=== PATIENT | female | born 1990 | race Caucasian/White ===

== ENCOUNTER → 2024-03-20 19:35 | Outpatient (REF) | payer OTHER, SELFPAY | LOC: MRI 19:35 | PROVIDERS: ATTENDING PHYSICIAN Student in an Organized Health Care Education/Training Program; FAMILY PHYSICIAN Family Medicine | DX: E22.1 Hyperprolactinemia (principal); D35.2 Benign neoplasm of pituitary gland | CPT/HCPCS: 70553; A9575 ==

== ENCOUNTER → 2024-04-13 16:00 | Outpatient (REF) | payer OTHER, SELFPAY | LOC: RAD 16:00 | PROVIDERS: ATTENDING PHYSICIAN Obstetrics & Gynecology; FAMILY PHYSICIAN Family Medicine | DX: R10.2 Pelvic and perineal pain (principal) | CPT/HCPCS: 76830; 76856 ==

== ENCOUNTER 2024-06-23 19:13 | Emergency (ER) | payer OTHER, SELFPAY ==
[2024-06-23 19:21] VITALS: BP 126/79
[2024-06-23 19:46] LABS: Urine Albumin Trace (Neg - Trace); Urine Bilirubin Negative (Negative); Urine Character Clear (Clear); Urine Color Yellow; Urine Glucose Negative (Negative); Urine Ketone Trace (Negative); Urine Leukocyte Trace (Negative); Urine Nitrite Negative (Negative); Urine Occult Blood 4+ (Negative); Urine Specific Gravity 1.015 (<1.030); Urine Urobilinogen Negative (Neg - 1+)
[2024-06-23 19:47] LABS: % Basophils 0.3 % (0-2); % Eosinophils 0.4 % (0-6); % Immature Granulocytes 0.3 % (0-0.5); % Lymphocytes 15.6 % (20.5-51.1); % Monocytes 8.4 % (1.7-9.3); Absolute Eosinophils 0.1 10^3/uL (0-0.7); Absolute Immature Granulocytes 0.1 10^3/uL (0-0.05); Absolute Lymphocytes 2.4 10^3/uL (1.2-3.4); Absolute Monocytes 1.3 10^3/uL (0.1-0.6); Absolute Neutrophils 11.4 10^3/uL (1.4-6.5); Hematocrit 39.3 % (37.0-47.0); Hemoglobin 13.8 g/dL (12.0-16.0); Mean Corp Hgb Conc. 35.1 g/dL (33.0-37.0); Mean Corpuscular Hgb 32.1 pg (27.0-31.0); Mean Corpuscular Volume 91.4 fL (81.0-99.0); Mean Platelet Volume 9.9 fL (7.4-10.4); Nucleated Red Blood Cells % 0 %; Platelet Count 206 10^3/uL (130-400); White Blood Cell Count 15.2 10^3/uL (4.8-10.8)
[2024-06-23 19:55] LABS: Urine Mucus Many; Urine Squamous Cell 16-20 /LPF (Few)
[2024-06-23 19:56] LABS: Urine Calcium Oxalate Crystals Present
[2024-06-23 19:57] LABS: Urine Amorphous Seen; Urine Bacteria Many (Negative); Urine White Cell 0-2 /HPF (0-5)
[2024-06-23 19:58] LABS: Urine Red Blood Cell >100 /HPF (0-2)
[2024-06-23 19:59] LABS: ALT (SGPT) 32 U/L (0-35); AST (SGOT) 32 U/L (14-36); Albumin 4.7 g/dl (3.5-5.0); Alkaline Phosphatase 47 U/L (38-126); Blood Urea Nitrogen 21 mg/dl (7-17); Carbon Dioxide 20 mmol/L (22-30); Chloride 105 mmol/L (98-107); Glucose 113 mg/dl (70-99); Potassium 4.6 mmol/L (3.5-5.1); Sodium 139 mmol/L (135-145); Total Bilirubin 0.4 mg/dl (0.2-1.3); Total Protein 7.1 g/dl (6.3-8.2); eGFR > 60.00
[2024-06-23 20:36] VITALS: BMI 29.2
--- NOTE | 2024-06-23 20:36 | ED.GENMED ---
History of Present Illness
<Fernandez Keane MD, Resident - Last Filed: 06/23/24 22:38>
General
Chief Complaint: Flank Pain
Source: patient and family
Time Seen by Provider: 06/23/24 20:15
Travel History
Have you traveled to any high risk areas for coronavirus over the past 14 days?: No
Have you had any contact with someone who has COVID-19?: No
Do you have any symptoms of coronavirus? Fever > 100 degrees, chills, cough, shortness of breath, sore throat, loss of taste or smell, muscle aches, or headache?: No
History of Present Illness
History of Present Illness:
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 The pain has worsened through the day, and now she has nausea and chills. No prior history of known nephrolithiasis,
recent or recurrent urinary tract infections, or other preceding genitourinary symptoms. Denies any recent illnesses, changes to her health, or any new medications.
Past History
<Fernandez Keane MD, Resident - Last Filed: 06/23/24 22:38>
Past History
ED Past Medical History: Other (prolactinoma; migraine disorder)
ED Past Surgical History: None
Social History
Tobacco: Non-smoker
Alcohol: Occasional
Drug: None
Living: with family
Review of Systems
<Fernandez Keane MD, Resident - Last Filed: 06/23/24 22:38>
Review of Systems
All Other Systems: Not applicable
Constitutional: Reports no symptoms
EENT: Reports no symptoms
Respiratory: Reports no symptoms
Cardiac: Reports no symptoms
ABD/GI: Reports no symptoms
: Reports flank pain and bleeding; Denies dysuria, frequency, incontinence, difficulty voiding, urgency, dark urine or discharge
Musculoskeletal: Reports no symptoms
Skin: Reports no symptoms
Neurological: Reports no symptoms
Endocrine: Reports no symptoms
Hematologic/Lymphatic: Reports no symptoms
Psychiatric: Reports no symptoms
Phy Exam
<Fernandez Keane MD, Resident - Last Filed: 06/23/24 22:38>
General Physical Exam
General Presentation: well appearing and no apparent distress
General Skin: warm and dry
General Habitus: normal
General Mental: alert
General Hydration: appears well hydrated
ENT Exam
ENT Exam: EOMI, pharynx normal, neck supple and normocephalic
Eye Exam
Eye Exam: PERRL, cornea clear and conjunctiva normal
Cardiovascular Exam
Cardiovascular Exam: regular rate/rhythm, no edema, no murmur and normal peripheral pulses
Pulmonary Exam
Pulmonary Exam: lungs clear, no respiratory distress, no rales, no crackles, no rhonchi, no stridor, no wheezing and no cough
Gastrointestinal Exam
Gastrointestinal Exam: normal bowel sounds, soft, no organomegaly, no pulsatile mass, non distended and cva tenderness (right)
Neurological Exam
Neurological Exam: alert, oriented x3, no motor deficits and speech normal
Musculoskeletal Exam
Musculoskeletal Exam: full ROM and no edema
Skin Exam
Skin Exam: normal color, warm/dry, no rash and no petechia
Psychiatric Exam
Psychiatric Exam: normal mood/affect
Course
<Fernandez Keane MD, Resident - Last Filed: 06/23/24 22:38>
Orders/Labs/Results
Orders:
Orders
06/23/24 19:34
Complete Blood Count/With Diff Urgent
06/23/24 19:35
Comprehensive Metabolic Panel Urgent
HCG, Serum Qualitative Screen Urgent
Comment: ADD ON
Urinalysis Reflex To Culture Urgent
Date Specimen was Collected: 06/23/24
Time Specimen was Collected: 19:28
Urine Microscopic Reflex Cult Urgent
Urine Culture Urgent
JONI Source: U
Specimen Description:
Date Specimen was Collected: 06/23/24
Time Specimen was Collected: 19:28
06/23/24 20:24
Add On- LAB Urgent
Tests Added?: HCG Qualitative
06/23/24 20:34
0.9% Sodium Chloride 1000 ml [Nss] 1,000 ml IV BOLUS
Ketorolac [Toradol] 30 mg IV NOW STA
Ondansetron Injectable [Zofran] 4 mg IV NOW STA
06/23/24 21:09
CT Abd/pel Without Iv Or Oral Urgent
Comment:
Reason For Exam: right flank pain; hematuria
06/23/24 21:53
HYDROmorphone [Dilaudid] 0.5 mg IV NOW STA
Abnormal Lab Results
06/23/24 06/23/24
19:34 19:35
WBC 15.2 H 10^3/uL
(4.8-10.8)
MCH 32.1 H pg
(27.0-31.0)
Abs Immat Gran (auto) 0.1 H 10^3/uL
(0-0.05)
Absolute Neuts (auto) 11.4 H 10^3/uL
(1.4-6.5)
Absolute Monos (auto) 1.3 H 10^3/uL
(0.1-0.6)
Lymphocytes % 15.6 L %
(20.5-51.1)
Carbon Dioxide 20 L mmol/L
(22-30)
BUN 21 H mg/dl
(7-17)
Creatinine 1.1 H mg/dL
(0.6-1.0)
Glucose 113 H mg/dl
(70-99)
Urine Ketones Trace A
(Negative)
Ur Occult Blood Reflex 4+ A
(Negative)
Leukocyte Esterase Rfl Trace A
(Negative)
Urine RBC >100 A /HPF
(0-2)
Urine Bacteria (Reflex) Many A
(Negative)
06/23/24 19:34
06/23/24 19:35
Vital Signs
Initial and Last Documented VS:
Initial Vital Signs
Temp Pulse Resp BP Pulse Ox
97.9 F 88 18 126/79 100
06/23/24 19:21 06/23/24 19:21 06/23/24 19:21 06/23/24 19:21 06/23/24 19:21
Last Documented Vital Signs
Temp Pulse Resp BP Pulse Ox
97.9 F 70 22 108/71 100
06/23/24 19:21 06/23/24 21:00 06/23/24 21:00 06/23/24 21:00 06/23/24 21:00
<Javi HClemencia Mary, DO - Last Filed: 06/23/24 22:36>
Orders/Labs/Results
Orders:
Orders
06/23/24 19:34
Complete Blood Count/With Diff Urgent
06/23/24 19:35
Comprehensive Metabolic Panel Urgent
HCG, Serum Qualitative Screen Urgent
Comment: ADD ON
Urinalysis Reflex To Culture Urgent
Date Specimen was Collected: 06/23/24
Time Specimen was Collected: 19:28
Urine Microscopic Reflex Cult Urgent
Urine Culture Urgent
JONI Source: U
Specimen Description:
Date Specimen was Collected: 06/23/24
Time Specimen was Collected: 19:28
06/23/24 20:24
Add On- LAB Urgent
Tests Added?: HCG Qualitative
06/23/24 20:34
0.9% Sodium Chloride 1000 ml [Nss] 1,000 ml IV BOLUS
Ketorolac [Toradol] 30 mg IV NOW STA
Ondansetron Injectable [Zofran] 4 mg IV NOW STA
06/23/24 21:09
CT Abd/pel Without Iv Or Oral Urgent
Comment:
Reason For Exam: right flank pain; hematuria
06/23/24 21:53
HYDROmorphone [Dilaudid] 0.5 mg IV NOW STA
Abnormal Lab Results
06/23/24 06/23/24
19:34 19:35
WBC 15.2 H 10^3/uL
(4.8-10.8)
MCH 32.1 H pg
(27.0-31.0)
Abs Immat Gran (auto) 0.1 H 10^3/uL
(0-0.05)
Absolute Neuts (auto) 11.4 H 10^3/uL
(1.4-6.5)
Absolute Monos (auto) 1.3 H 10^3/uL
(0.1-0.6)
Lymphocytes % 15.6 L %
(20.5-51.1)
Carbon Dioxide 20 L mmol/L
(22-30)
BUN 21 H mg/dl
(7-17)
Creatinine 1.1 H mg/dL
(0.6-1.0)
Glucose 113 H mg/dl
(70-99)
Urine Ketones Trace A
(Negative)
Ur Occult Blood Reflex 4+ A
(Negative)
Leukocyte Esterase Rfl Trace A
(Negative)
Urine RBC >100 A /HPF
(0-2)
Urine Bacteria (Reflex) Many A
(Negative)
06/23/24 19:34
06/23/24 19:35
Vital Signs
Initial and Last Documented VS:
Initial Vital Signs
Temp Pulse Resp BP Pulse Ox
97.9 F 88 18 126/79 100
06/23/24 19:21 06/23/24 19:21 06/23/24 19:21 06/23/24 19:21 06/23/24 19:21
Last Documented Vital Signs
Temp Pulse Resp BP Pulse Ox
97.9 F 70 22 108/71 100
06/23/24 19:21 06/23/24 21:00 06/23/24 21:00 06/23/24 21:00 06/23/24 21:00
<Fernandez Keane MD, Resident - Last Filed: 06/23/24 22:38>
MDM/Problems Addressed
Differential Diagnosis Includes:
Nephrolithiasis; pyelonephritis
MDM/Problems Addressed:
Will check CT AP for suspected nephrolithiasis.
<Fernandez Keane MD, Resident - Last Filed: 06/23/24 22:38>
*Critical Care Note
Total Time (30-74mins, 75-104mins- exclusive of procedures): Not Applicable
<Fernandez Keane MD, Resident - Last Filed: 06/23/24 22:38>
Update Note
Update Note:
Pain much better controlled and patient is stable. Discussed treatment options and outpatient follow-up with primary and urology.
ED Attending Note
<Fernandez Keane MD, Resident - Last Filed: 06/23/24 22:38>
-
Portions of this chart may have been created with voice recognition software.� Occasional wrong word or��sound alike� substitutions may have occurred due to the inherent limitations of voice recognition software.
<Javi Mary, DO - Last Filed: 06/23/24 22:36>
ED Attending Note
Patient seen and examined by attending physician: Yes
I performed a history and physical exam of patient and discussed management with resident, I reviewed resident's note and agree with documented findings and plan of care.: Yes
ED Attending Note:
Patient presents with right flank pain that started suddenly at 6 AM. Pain associate with nausea vomiting. Patient noted some blood in her urine. No fever. No history of similar pain.
General: Awake, Alert, Oriented X3. No acute distress.
Vitals: unremarkable
Head: Atraumatic
Eyes: Pupils equal, EOMI
Lungs: Clear and equal b/l
Heart: Regular rate, no murmurs
Abd: Soft, Nontender, No pulsatile mass
Back: Mild right CVA tenderness to percussion
Neuro: Nonfocal
Skin: Warm, dry, no rash
Extremities: pulses equal b/l, no edema
Patient presents with sudden right flank pain. Suspect kidney stone. Will obtain a CT to further evaluate. Patient feels better after Toradol and Zofran.
Discharge Plan
Departure
Patient Disposition: Home (Routine Discharge)
Date of Disposition: 06/23/24
Time of Disposition: 22:28
Patient with high blood pressure during this ER visit?: No
Condition: Good
Discharge Problem:
Ureterolithiasis
Instructions: Kidney stones in adults
Prescriptions:
New
tamsulosin [Flomax] 0.4 mg capsule
0.4 mg PO DAILY 14 Days Qty: 14 1RF
Rx Instructions:
Take until the stone passes.
oxycodone 5 mg tablet
5 mg PO Q6H PRN (Reason: Pain) Qty: 12 0RF
Referrals:
Candice Delarosa DO [Active] - Call in 1-3 days for appt (Ureterolithiasis)
Waqar Turner MD [Family Provider] -
Activity Restrictions/Additional Instructions:
Stay well-hydrated. Follow-up with primary and consult urology outpatient.
Interventions
Interventions:
*General Assessment Last Done: 06/23/24 19:28
ED- Fall Risk Assessment Last Done: 06/23/24 20:37
NM-Koevpv-Zwegmlleak Assessment Last Done: 06/23/24 20:37
ED-Female Genitourinary Assessment Last Done: 06/23/24 20:37
Discharge Date and Time
Print Language: PERSIAN
[2024-06-23] MEDS: TORADOL 30 MG IV (20:42)
[2024-06-23] MEDS: NSS 1000 IV (20:42)
[2024-06-23] MEDS: ZOFRAN 4 MG IV (20:42)
[2024-06-23 21:00] VITALS: BP 108/71
[2024-06-23 21:02] LABS: HCG, Serum Qualitative Screen Negative
[2024-06-23 21:04] VITALS: BP 108/71
[2024-06-23] MEDS: DILAUDID 0.5 MG IV (21:57)
== END 2024-06-23 22:50 | disposition home or self-care (01) ==
LOC: EMR 19:13
PROVIDERS: EMERGENCY PHYSICIAN Emergency Medicine; FAMILY PHYSICIAN Family Medicine
DX: N13.2 Hydronephrosis with renal and ureteral calculous obstruction (principal)
CPT/HCPCS: 99284; 96374; 96375 ×2; 74176; 80053; 81003; 81015; 84703; 85025; 87086

== ENCOUNTER 2024-06-25 22:07 | Inpatient (IN) | payer OTHER, SELFPAY ==
[2024-06-25] VITALS (7 sets, daily range): BP systolic 99–118; BP diastolic 64–78; BMI 29.4
--- NOTE | 2024-06-25 16:24 | ED.GENMED ---
History of Present Illness
General
Chief Complaint: Flank Pain
Source: patient and records
Time Seen by Provider: 06/25/24 15:31
History of Present Illness
History of Present Illness:
34 year old female with past medical history of recently diagnosed right sided proximal ureteral stone this past Tuesday, returning to the ER due to continued pain, nausea/vomiting and generally feeling unwell despite taking flomax and pain
medications as directed. Patient's last dose of oxycodone was at 2 PM today and she also took Tylenol around 1 PM but 30 seconds after taking the Tylenol patient proceeded to vomit. She states her hematuria has improved from Tuesday and remains
without any other urinary symptoms. Pain currently 7 out of 10, right flank, nonradiating. Patient denies any fevers, chills or rigors. No other symptoms presently
Past History
Past History
ED Past Medical History: Other (prolactinoma; migraine disorder)
ED Past Surgical History: None
Social History
Tobacco: Non-smoker
Alcohol: Occasional
Drug: None
Personal: Single
Living: with family
Review of Systems
Review of Systems
All Other Systems: ROS reviewed and negative except as documented in HPI and ROS
Phy Exam
Physical Exam
Physical Exam:
GENERAL: Alert , appears uncomfortable
HEAD: NCAT
EYE: clear conjunctiva
NECK: Supple
ENT: o/p clr, mmm.
CARDIAC: Regular rate and rhythm .
LUNGS: Clear breath sounds bilaterally, no acute respiratory distress, no wheezes/rales/rhonchi
ABDOMEN: Soft, without focal tenderness, no r/g, mild right CVAT
NEUROLOGICAL: Alert and oriented, no focal neuro deficits
SKIN: Warm and dry, skin intact.
MUSCULOSKELETAL: well perfused.
PSYCH: Normal and appropriate interaction.
Scores
Heart Failure Risk
Heart Failure Risk Score: Not Applicable
Heart Score for Chest Pain Patients
STEMI patient?: Not applicable
Withdrawal Assessment of Alcohol
Withdrawal Assessment Completed?: Not applicable
Course
Orders/Labs/Results
Orders:
Orders
06/25/24 Breakfast
Regular
At Your Request: Full Participation
06/25/24 15:33
Test Result ONCE
06/25/24 15:54
0.9% Sodium Chloride 1000 ml [Nss] 1,000 ml IV BOLUS
HYDROmorphone [Dilaudid] 0.5 mg IV NOW STA
Ketorolac [Toradol] 30 mg IV NOW STA
Ondansetron Injectable [Zofran] 4 mg IV NOW STA
06/25/24 15:56
CR Abdomen - 1 View Urgent
Comment:
Reason For Exam: right flank pain, prox ureteral stone 2 days ago
06/25/24 16:45
Complete Blood Count/With Diff Urgent
Comprehensive Metabolic Panel Urgent
HCG, Serum Qualitative Screen Urgent
Urinalysis Reflex To Culture Urgent
Date Specimen was Collected: 06/25/24
Time Specimen was Collected: 16:39
Urine Microscopic Reflex Cult Urgent
06/25/24 19:50
Ondansetron Injectable [Zofran] 4 mg IV NOW STA
Oxycodone [Roxicodone] 10 mg PO NOW STA
06/25/24 21:16
Admit/Transfer Patient As Directed
Co-Sign Provider:
Level of Care: Inpatient admission
Assign to:: Medical/Surgical
Physician / Group: Francisco J
Diagnosis: R Ureteral Stone
Reason for Hospitalization: R Ureteral Stone
Expected length of stay greater than two midnights?: Yes
ELOS- Estimated Length of Stay in days: 2
I certify the patient meets the requirements for IP care: Yes
PRN Pain Medication Management As Directed
May give lesser potent ordered pain med per pt: Yes
preference::
Protocol:: Medication orders for pain may be administered in a
manner that supports deferring to patient preference
when the pt is:
- Requesting an ordered lesser potent pain medication.
Least to most potent pain medications are defined
as: acetaminophen < NSAID < tramadol < opioids
(morphine, oxycodone, hydromorphone).
- Requesting a lesser dose of the same medication IF
ORDERED.
- Requesting a less intrusive route of administration
if both routes are prescribed by the provider (PO <
IV).
06/25/24 21:17
Tamsulosin [Flomax] 0.4 mg PO NOW STA
06/25/24 21:18
Code Status As Directed
Resuscitation Status: Full Code
06/25/24 22:36
0.9% Sodium Chloride 1000 ml [Nss] 1,000 ml IV 125 mls/hr
Acetaminophen [Tylenol] 650 mg PO Q4HPRN PRN
HYDROmorphone [Dilaudid] 0.5 mg IV Q4HPRN PRN
Ketorolac [Toradol] 15 mg IV Q6HPRN PRN
Ondansetron Injectable [Zofran] 4 mg IV Q6HPRN PRN
Propranolol Extended Release [Inderal LA] 60 mg PO HS
06/25/24 22:36
UROLOGY CONSULT Routine
Consulting Provider: Max Matthews
Was physician already notified: Yes
Comment: R Ureteral Stone
Activity As Directed
Activity Level: Ambulate
I/O [Intake/ Output] As Directed
Frequency: Per unit guidelines
Pneumatic Compression Sleeves As Directed
Type: Knee high
Strain Urine As Directed
Vital Signs As Directed
Frequency: Per unit guidelines
Oxygen Therapy [O2 Therapy] [RESP] Routine
Titrate/Wean O2 to maintain O2 sat greater than (%): 94
DX Deep Vein Thrombosis Video Routine
06/26/24 00:00
CefTRIAXone [Rocephin] 1,000 mg IV Q24H
06/26/24 05:38
Basic Metabolic Panel IN AM
Complete Blood Count/No Diff IN AM
06/26/24 Breakfast
NPO
Allow oral meds: Yes
Allow clear liquids: Sips of Clears
NPO for procedure after (time): midnight
07/01/24 08:00
cabergoline 0.5 mg PO DICKSON
Abnormal Lab Results
06/25/24
16:45
WBC 12.1 H 10^3/uL
(4.8-10.8)
MCH 32.0 H pg
(27.0-31.0)
Absolute Neuts (auto) 9.7 H 10^3/uL
(1.4-6.5)
Absolute Monos (auto) 0.9 H 10^3/uL
(0.1-0.6)
Neutrophils % 80.1 H %
(42.2-75.2)
Lymphocytes % 12.2 L %
(20.5-51.1)
Creatinine 1.1 H mg/dL
(0.6-1.0)
Total Bilirubin 1.4 H D mg/dl
(0.2-1.3)
Urine Ketones 3+ A
(Negative)
Ur Occult Blood Reflex 4+ A
(Negative)
Leukocyte Esterase Rfl Trace A
(Negative)
Urine RBC 70-80 A /HPF
(0-2)
Urine Bacteria (Reflex) Few A
(Negative)
06/25/24 16:45
06/25/24 16:45
Vital Signs
Initial and Last Documented VS:
Initial Vital Signs
Temp Pulse Resp BP Pulse Ox
98.1 F 66 16 118/74 98
06/25/24 15:17 06/25/24 15:17 06/25/24 15:17 06/25/24 15:17 06/25/24 15:17
Last Documented Vital Signs
Temp Pulse Resp BP Pulse Ox
99.0 F 65 17 96/59 96
06/26/24 08:18 06/26/24 08:18 06/26/24 08:18 06/26/24 08:18 06/26/24 08:18
MDM/Problems Addressed
Differential Diagnosis Includes:
Renal/ureteral colic, pyelonephritis, acute kidney injury
MDM/Problems Addressed:
34-year-old female presenting to the emergency department for evaluation of known right sided proximal ureteral stone paste off CT scan done here this past Tuesday, pain improved during initial ER visit but now returned. Patient pain uncontrolled
with home medications. Will check labs and repeat abdominal x-ray. Pain control with Toradol, Dilaudid and Zofran for nausea. Fluids ordered. Discussed risk versus benefit of admission versus continued outpatient management and disposition will
be determined based off patient's response to medications.
*Pulse Oximetry
Patient hypoxic: no
*Critical Care Note
Total Time (30-74mins, 75-104mins- exclusive of procedures): Not Applicable
Data Reviewed
Review of Other/Old Records Reveals: Labs, Records and Radiology Studies
Source: patient and records
Comment
Comment:
7:45 PM - patient pain remains significantly improved although starting to come back slightly. 10mg oxycodone and additional zofran ordered. XR abdomen shows significant improvement and movement of stone to distal ureter. No UTI, no THO. Patient
does feel comfortable going home again with continued supportive measures if pain improved following oral meds. Has meds at home and appointment with urology scheduled for 3:45PM tomorrow
Patient Management
Discussion with other providers: Hospitalist and Junior Accounting Clerk
Escalation/DeEscalation of care consider admission/obs:
Patient still with pain following oral medications and is very hesitant to go home. I did advise patient that given there was considerable movement of the stone and given the size of the stone, urology would normally opt for normal passage of the
stone vs procedure. Patient still felt that she could not go home due to continued pain. Hospitalist accepts for continued supportive care. Urology notified and will consult in the AM.
ED Attending Note
-
Portions of this chart may have been created with voice recognition software.� Occasional wrong word or��sound alike� substitutions may have occurred due to the inherent limitations of voice recognition software.
Discharge Plan
Departure
Patient Disposition: Admit
Date of Disposition: 06/25/24
Time of Disposition: 20:30
Presentation/result/management discussed w/ accepting MD/DO: Hospitalist
Patient with high blood pressure during this ER visit?: No
Discharge Problem:
Ureteral colic
Interventions
Interventions:
*Risk Screen - Suicide Last Done: 06/25/24 15:17
*General Assessment Last Done: 06/25/24 17:01
*Neglect/Abuse Screening Last Done: 06/25/24 15:17
ED- Fall Risk Assessment Last Done: 06/25/24 17:03
*ED COVID-19 Vaccine History Last Done: 06/25/24 17:01
FP-Bizxje-Hkxyxndqca Assessment Last Done: 06/25/24 17:04
ED-Female Genitourinary Assessment Last Done: 06/25/24 17:04
[2024-06-25] MEDS: TORADOL 30 MG IV (16:47)
[2024-06-25] MEDS: DILAUDID 0.5 MG IV (16:47)
[2024-06-25] MEDS: ZOFRAN 4 MG IV ×2 (16:47→19:58)
[2024-06-25] MEDS: NSS 1000 IV ×2 (16:54→23:33)
[2024-06-25 17:03] LABS: % Basophils 0.1 % (0-2); % Eosinophils 0.2 % (0-6); % Immature Granulocytes 0.3 % (0-0.5); % Lymphocytes 12.2 % (20.5-51.1); % Monocytes 7.1 % (1.7-9.3); % Neutrophils 80.1 % (42.2-75.2); Absolute Lymphocytes 1.5 10^3/uL (1.2-3.4); Absolute Monocytes 0.9 10^3/uL (0.1-0.6); Absolute Neutrophils 9.7 10^3/uL (1.4-6.5); Hematocrit 40.9 % (37.0-47.0); Hemoglobin 14.1 g/dL (12.0-16.0); Mean Corp Hgb Conc. 34.5 g/dL (33.0-37.0); Mean Corpuscular Volume 92.7 fL (81.0-99.0); Mean Platelet Volume 9.9 fL (7.4-10.4); Nucleated Red Blood Cells % 0 %; Platelet Count 170 10^3/uL (130-400); Red Blood Cell Count 4.41 10^6/uL (4.20-5.40); Urine Albumin Negative (Neg - Trace); Urine Bilirubin Negative (Negative); Urine Character Clear (Clear); Urine Color Yellow; Urine Glucose Negative (Negative); Urine Ketone 3+ (Negative); Urine Leukocyte Trace (Negative); Urine Nitrite Negative (Negative); Urine Occult Blood 4+ (Negative); Urine Specific Gravity 1.015 (<1.030); Urine Urobilinogen 1+ (Neg - 1+); Urine pH 6.5 (5.0-9.0); White Blood Cell Count 12.1 10^3/uL (4.8-10.8)
[2024-06-25 17:17] LABS: Urine Mucus Moderate
[2024-06-25 17:18] LABS: HCG, Serum Qualitative Screen Negative; Urine Bacteria Few (Negative); Urine Red Blood Cell 70-80 /HPF (0-2); Urine White Cell 0-2 /HPF (0-5)
[2024-06-25 17:20] LABS: ALT (SGPT) 25 U/L (0-35); AST (SGOT) 24 U/L (14-36); Albumin 4.3 g/dl (3.5-5.0); Alkaline Phosphatase 52 U/L (38-126); Blood Urea Nitrogen 12 mg/dl (7-17); Calcium 9.7 mg/dl (8.4-10.2); Carbon Dioxide 23 mmol/L (22-30); Chloride 103 mmol/L (98-107); Estimated Creatinine Clearance 69 ml/min; Glucose 93 mg/dl (70-99); Potassium 4.7 mmol/L (3.5-5.1); Sodium 139 mmol/L (135-145); Total Bilirubin 1.4 mg/dl (0.2-1.3); Total Protein 6.8 g/dl (6.3-8.2); eGFR > 60.00
[2024-06-25] MEDS: ROXICODONE 10 MG PO (19:58)
--- NOTE | 2024-06-25 21:20 | HPS.HSE ---
Family Physician
-
Family Physician: Waqar Turner
Chief Complaint
-
R Flank Pain
History of Present Illness
Patient is a 34y F with PMH significant for prolactinoma and migraines who presents to ED complaining of R flank pain. Patient states that she woke with R flank pain around 6 AM today. The pain has persisted / increased throughout the day and
started to radiate anteriorly into the R lower abdomen. She has mild nausea without emesis. She had loose stools here in the ED. No fevers or chills. Patient denies any prior history of similar symptoms.
Patient initially developed R flank pain and hematuria on 06/23/24. She presented to the ED at that time and imaging revealed R ureteral stone.
Patient was discharged on pain medication and with instructions for outpatient Urology follow-up.
When symptoms recurred / increased this AM she returned to the ED.
Medical History
Past Medical History
Past Medical History: Reports Other
Additional Past Medical History:
Prolactinoma
Migraine Headaches
Past Surgical History: Reports None
Social History
Tobacco: Non-smoker
Alcohol: Occasional (Rare)
Drug: None
Family History
Family History: Other (Father: CAD)
Allergies / Home Medications
Allergies reflects when Allergies were last updated in [facility].
Home Medications with original date entered in [facility]
Allergy/Medication List:
Allergies
Allergy/AdvReac Type Severity Reaction Status Date / Time
No Known Allergies Allergy Verified 06/25/24 15:19
Home Medications
acetaminophen 500 mg tablet (Tylenol Extra Strength) 500 mg PO Q6HPRN PRN mild pain 06/25/24
cabergoline 0.5 mg tablet 0.5 mg PO DICKSON 06/25/24
ibuprofen 200 mg tablet 600 mg PO Q6HPRN PRN mild pain 06/25/24
propranolol 60 mg capsule,24 hr,extended release 60 mg PO HS 06/25/24
Review of Systems
-
History Source: Patient
A 12 point ROS was completed and negative except as noted: Yes
Constitutional: Denies Fever or Chills
EENT: Denies Sore Throat
Respiratory: Denies Cough or Trouble Breathing
Cardiac: Denies Chest Pain or Palpitations
Abdomen/GI: Reports Abdominal Pain, Nausea and Diarrhea; Denies Vomiting, Bloody Stools or Black Stools
: Reports Flank Pain; Denies Dysuria, Frequency or Bleeding
Musculoskeletal: Denies Joint Pain or Edema
Neurological: Denies Dizzy or Headache
Psych: Denies Depression or Anxiety
Physical Exam
Vital Signs
Vital Signs
Temp Pulse Resp BP Pulse Ox
98.5 F 64 18 103/69 98
06/25/24 18:45 06/25/24 18:45 06/25/24 20:00 06/25/24 20:43 06/25/24 20:45
Physical Exam
General: Other (34y F in no acute distress.)
HEENT: Moist mucous membranes and PERRLA
Respiratory: Clear; No Wheezes, Rales or Rhonchi
Cardiac: S1/S2 and Regular Rhythm; No Murmur
GI: Soft, Non Distended, Normal Bowel Sounds and Other (mild R sided abdominal tenderness without rebound or guarding.)
Genito-urinary: Costovertebral angle tend (Pos R CVAT)
Musculoskeletal: No Clubbing, No Cyanosis and No Edema
Neuro: AO x 3
Laboratory Results
-
06/25/24 16:45
06/25/24 16:45
Laboratory Results
Total Bilirubin 1.4 mg/dl (0.2-1.3) H D 06/25/24 16:45
AST 24 U/L (14-36) 06/25/24 16:45
ALT 25 U/L (0-35) 06/25/24 16:45
Alkaline Phosphatase 52 U/L (38-126) 06/25/24 16:45
Impression/Plan
-
A/P: Patient is a 34y F with PMH significant for prolactinoma who presents to ED complaining of R flank pain since this AM.
R Ureteral Stone
- Admit for further evaluation and treatment.
- Pain control, NPO, IVFs, etc.
- Urology evaluation for possible cytso / stent in the AM if stone does not pass (in distal ureter on today's x-ray).
- Strain urine. tamsulosin, etc.
- Follow for clinical improvement.
Prolactinoma
- Stable. Continue cabergoline.
Migraine Headaches
- Stable. Continue propranolol prophylaxis.
DVT Prophylaxis: SCDs
Code Status: Full
[2024-06-25] MEDS: FLOMAX 0.4 MG PO (21:28)
[2024-06-25] MEDS: ROCEPHIN 1000 MG IV (23:18)
[2024-06-25] MEDS: STERILE WATER FOR INJECTION 10 ML IV (23:19)
[2024-06-25] MEDS: INDERAL LA 60 MG PO (23:19)
[2024-06-25] MEDS: TORADOL 15 MG IV (23:30)
[2024-06-26 05:37] VITALS: BP 93/60
[2024-06-26] MEDS: TORADOL 15 MG IV ×2 (05:40→18:45)
[2024-06-26 05:54] LABS: Hematocrit 31.5 % (37.0-47.0); Hemoglobin 10.9 g/dL (12.0-16.0); Mean Corp Hgb Conc. 34.6 g/dL (33.0-37.0); Mean Corpuscular Hgb 32.2 pg (27.0-31.0); Mean Corpuscular Volume 93.2 fL (81.0-99.0); Mean Platelet Volume 9.9 fL (7.4-10.4); Platelet Count 130 10^3/uL (130-400); Red Blood Cell Count 3.38 10^6/uL (4.20-5.40); White Blood Cell Count 7.7 10^3/uL (4.8-10.8)
[2024-06-26 06:10] LABS: Blood Urea Nitrogen 9 mg/dl (7-17); Calcium 8.2 mg/dl (8.4-10.2); Carbon Dioxide 24 mmol/L (22-30); Chloride 109 mmol/L (98-107); Estimated Creatinine Clearance 84 ml/min; Glucose 79 mg/dl (70-99); Potassium 4.1 mmol/L (3.5-5.1); Sodium 139 mmol/L (135-145); eGFR > 60.00
[2024-06-26] MEDS: NSS 1000 IV ×3 (07:41→23:03)
[2024-06-26] MEDS: TYLENOL 650 MG PO ×2 (07:44→16:18)
[2024-06-26 08:01] VITALS: BP 96/59
[2024-06-26 08:18] VITALS: BP 96/59
--- NOTE | 2024-06-26 10:08 | W.PN.URO.CBU ---
Today's Communication / Plan
-
Discussed the various treatment options available
Advise patient pursue a trial of stone passage if her pain can be sufficiently well managed
Continue tamsulosin
Strain urine
Repeat KUB in AM 06/27/24
Assessment / Plan
-
Partially obstructing 5-6 mm right ureteral stone with radiographic evidence of distal migration since CT scan 06/23/24
Non-obstructing right renal calculus
Diagnosis
-
Date of Service: June 26, 2024
-
Patient Diagnosis:
Right ureteral stone
Right renal stone
Right renal colic w/ nausea
Subjective
-
Comfortable at present
Has not received narcotic in several hours
Objective
-
Vital Signs
Temp Pulse Resp BP Pulse Ox
99.0 F 65 17 96/59 96
06/26/24 08:18 06/26/24 08:18 06/26/24 08:18 06/26/24 08:18 06/26/24 08:18
Intake and Output
06/25/24 06/26/24 06/27/24
06:59 06:59 06:59
Other:
Number of unmeasured voidings 1
Laboratory Results
06/26/24 05:38
06/26/24 05:38
Review of Systems
-
Constitutional: No Symptoms
Respiratory: No Symptoms
Cardiac: No Symptoms
Abdomen/GI: Abdominal Pain and Nausea
Neurological: No Symptoms
Physical Exam
-
General - well developed, well nourished, no acute distress
Abdomen - soft, non-tender, no CVAT
Neuro - AOx3, no motor deficits
Counseling
-
Trial of stone passage
Discussed with Hospitalist
--- NOTE | 2024-06-26 10:12 | PTCARENOTE ---
pt aaox3. states back pain is much improved. now has headache tylenol given as ordered. ivf running as ordered.
[2024-06-26] MEDS: DILAUDID 0.5 MG IV ×2 (10:59→21:15)
--- NOTE | 2024-06-26 14:00 | W.PN.HOSP.TC ---
Today's Communication/Plan
-
strain urine
pain Control
KUB tomorrow
possible cysto Thurs if no improvement/passage of stone
Assessment / Plan
Assessment / Plan
Physical Exam
General: Other (34y F in no acute distress.)
HEENT: Moist mucous membranes and PERRLA
Respiratory: Clear; No Wheezes, Rales or Rhonchi
Cardiac: S1/S2 and Regular Rhythm; No Murmur
GI: Soft, Non Distended, Normal Bowel Sounds and Other (mild R sided abdominal tenderness without rebound or guarding.)
Genito-urinary: Costovertebral angle tend (Pos R CVAT)
Musculoskeletal: No Clubbing, No Cyanosis and No Edema
Neuro: AO x 3
A/P: Patient is a 34y F with PMH significant for prolactinoma who presents to ED complaining of R flank pain since this AM.
R Ureteral Stone
- Pain control, IVFs, etc.
- Urology evaluation for possible cytso / stent Thurs if stone does not pass (in distal ureter on today's x-ray).
- Repeat KUB tomorrow am
- Strain urine. tamsulosin, etc.
- Follow for clinical improvement.
-can cont empiric abx for now as difficult to discern if actual infection v not with no recent cultures although 06/23 with no growth.
Prolactinoma
- Stable. Continue cabergoline.
Migraine Headaches
- Stable. Continue propranolol prophylaxis.
DVT Prophylaxis: HSQ
Code Status: Full
Anticipated Discharge: 24 - 48 hours
Subjective/Interval History
-
Date of Service: June 26, 2024
still with pain
Objective Data
-
Labs:
Laboratory Results
06/26/24
05:38
WBC 7.7
Hgb 10.9 L D
Hct 31.5 L
Plt Count 130 D
Sodium 139
Potassium 4.1
Chloride 109 H
Carbon Dioxide 24
BUN 9
Creatinine 0.9
Glucose 79
Calcium 8.2 L D
Vital Signs:
Vital Signs
Temp Pulse Resp BP Pulse Ox
99.0 F 65 17 96/59 96
06/26/24 08:18 06/26/24 08:18 06/26/24 08:18 06/26/24 08:18 06/26/24 08:18
Review of Systems
-
History Source: Patient
All other systems: Not reviewed unless documented
Data Reviewed
-
Diagnostic Radiology: Image personally visualized and interpreted and Report Reviewed by me
CT Scan: Image personally visualized and interpreted and Report Reviewed by me
Labs: Labs Reviewed by me
[2024-06-26 15:24] VITALS: BP 105/64
[2024-06-26 15:40] VITALS: BMI 29.3
--- NOTE | 2024-06-26 15:40 | PTCARENOTE ---
Admission patient arrived on stretcher, AAOx3, ambulated to balanced standing scale and bed, VSS.
[2024-06-26 15:45] VITALS: BP 100/59
[2024-06-26] MEDS: HEPARIN 5000 UNITS SC ×2 (16:15→22:59)
[2024-06-26] MEDS: INDERAL LA 60 MG PO (22:58)
[2024-06-26] MEDS: ROCEPHIN 1000 MG IV (23:00)
[2024-06-26] MEDS: STERILE WATER FOR INJECTION 10 ML IV (23:00)
[2024-06-26 23:01] VITALS: BP 105/64
[2024-06-27] MEDS: TORADOL 15 MG IV ×2 (01:35→08:09)
[2024-06-27] MEDS: DILAUDID 0.5 MG IV ×2 (02:01→08:08)
[2024-06-27] MEDS: NSS 1000 IV ×3 (05:59→20:57)
[2024-06-27 06:22] LABS: Hematocrit 31.3 % (37.0-47.0); Hemoglobin 10.6 g/dL (12.0-16.0); Mean Corp Hgb Conc. 33.9 g/dL (33.0-37.0); Mean Corpuscular Hgb 31.9 pg (27.0-31.0); Mean Corpuscular Volume 94.3 fL (81.0-99.0); Mean Platelet Volume 10.6 fL (7.4-10.4); Platelet Count 130 10^3/uL (130-400); Red Blood Cell Count 3.32 10^6/uL (4.20-5.40); White Blood Cell Count 7.2 10^3/uL (4.8-10.8)
[2024-06-27 06:58] LABS: ALT (SGPT) 38 U/L (0-35); AST (SGOT) 34 U/L (14-36); Albumin 2.8 g/dl (3.5-5.0); Alkaline Phosphatase 52 U/L (38-126); Blood Urea Nitrogen 10 mg/dl (7-17); Calcium 8.3 mg/dl (8.4-10.2); Carbon Dioxide 23 mmol/L (22-30); Chloride 110 mmol/L (98-107); Estimated Creatinine Clearance 94 ml/min; Glucose 73 mg/dl (70-99); Potassium 4.1 mmol/L (3.5-5.1); Sodium 142 mmol/L (135-145); Total Bilirubin 0.2 mg/dl (0.2-1.3); Total Protein 4.9 g/dl (6.3-8.2); eGFR > 60.00
[2024-06-27 07:10] VITALS: BP 107/62
[2024-06-27] MEDS: HEPARIN 5000 UNITS SC ×2 (08:08→16:21)
[2024-06-27] MEDS: DILAUDID 1 MG IV (12:24)
--- NOTE | 2024-06-27 12:38 | CM ---
Dx - R ureteral stone Met with pt at bedside
Pt reports she lives alone in an apartment at listed address; 6 steps to enter
Pt reports she is independent, active, employed [employer], Driving
DME - none
SNF/HH - denies past hx
PCP - Rusty Turner
Pharm - [facility]
Plan - anticipate home no needs
--- NOTE | 2024-06-27 12:47 | W.PN.HOSP.TC ---
Today's Communication/Plan
-
IVF, monitor for passage of stone
OR tomorrow for cystoscopy if no passage
pain control
empiric abx
Assessment / Plan
Assessment / Plan
Physical Exam
General: Other (34y F in no acute distress.)
HEENT: Moist mucous membranes and PERRLA
Respiratory: Clear; No Wheezes, Rales or Rhonchi
Cardiac: S1/S2 and Regular Rhythm; No Murmur
GI: Soft, Non Distended, Normal Bowel Sounds and Other (mild R sided abdominal tenderness without rebound or guarding.)
Genito-urinary: Costovertebral angle tend (Pos R CVAT)
Musculoskeletal: No Clubbing, No Cyanosis and No Edema
Neuro: AO x 3
A/P: Patient is a 34y F with PMH significant for prolactinoma who presents to ED complaining of R flank pain since this AM.
R Ureteral Stone
- Pain control, IVFs, etc.
- Urology evaluation for possible cyto / stent Thurs if stone does not pass
- inferior migration on KUB
- Strain urine. tamsulosin, etc.
- Follow for clinical improvement.
-can cont empiric abx for now as difficult to discern if actual infection v not with no recent cultures although 06/23 with no growth.
Prolactinoma
- Stable. Continue cabergoline.
Migraine Headaches
- Stable. Continue propranolol prophylaxis.
DVT Prophylaxis: HSQ
Code Status: Full
Anticipated Discharge: Within 24 hours
Subjective/Interval History
-
Date of Service: June 27, 2024
Pain still present uncontrolled with Dilaudid 0.5
Objective Data
-
Labs:
Laboratory Results
06/27/24
05:07
WBC 7.2
Hgb 10.6 L
Hct 31.3 L
Plt Count 130
Sodium 142
Potassium 4.1
Chloride 110 H
Carbon Dioxide 23
BUN 10
Creatinine 0.8
Glucose 73
Calcium 8.3 L
Total Bilirubin 0.2 D
AST 34
ALT 38 H
Alkaline Phosphatase 52
Vital Signs:
Vital Signs
Temp Pulse Resp BP Pulse Ox
97.4 F 75 16 107/62 97
06/27/24 07:10 06/27/24 07:10 06/27/24 07:10 06/27/24 07:10 06/27/24 07:10
I&O
06/26/24 06/27/24 06/28/24
06:59 06:59 06:59
Intake Total 1750 / 1750
Output Total 425 / 425
Balance 1325 / 1325
Review of Systems
-
History Source: Patient
All other systems: Not reviewed unless documented
Data Reviewed
-
Diagnostic Radiology: Image personally visualized and interpreted and Report Reviewed by me
CT Scan: Image personally visualized and interpreted and Report Reviewed by me
Labs: Labs Reviewed by me
[2024-06-27] MEDS: ZOFRAN 4 MG IV (14:12)
[2024-06-27] MEDS: TORADOL 30 MG IV ×2 (14:26→20:51)
[2024-06-27 15:59] VITALS: BP 108/67
[2024-06-27] MEDS: INDERAL LA 60 MG PO (20:55)
[2024-06-27 23:00] VITALS: BP 107/55
[2024-06-28] VITALS (13 sets, daily range): BP systolic 105–120; BP diastolic 61–76
[2024-06-28] MEDS: HEPARIN 5000 UNITS SC (00:15)
[2024-06-28] MEDS: STERILE WATER FOR INJECTION 10 ML IV (00:15)
[2024-06-28] MEDS: ROCEPHIN 1000 MG IV (00:15)
[2024-06-28] MEDS: TORADOL 30 MG IV ×2 (04:08→11:39)
[2024-06-28] MEDS: NSS 1000 IV (04:11)
[2024-06-28 05:48] LABS: Hematocrit 29.8 % (37.0-47.0); Hemoglobin 10.3 g/dL (12.0-16.0); Mean Corp Hgb Conc. 34.6 g/dL (33.0-37.0); Mean Corpuscular Volume 89.8 fL (81.0-99.0); Mean Platelet Volume 10.5 fL (7.4-10.4); Platelet Count 145 10^3/uL (130-400); Red Blood Cell Count 3.32 10^6/uL (4.20-5.40); Red Cell Dist. Width 12.3 % (11.5-14.5)
[2024-06-28 06:38] LABS: ALT (SGPT) 66 U/L (0-35); AST (SGOT) 61 U/L (14-36); Albumin 2.7 g/dl (3.5-5.0); Alkaline Phosphatase 75 U/L (38-126); Blood Urea Nitrogen 6 mg/dl (7-17); Calcium 8.5 mg/dl (8.4-10.2); Carbon Dioxide 23 mmol/L (22-30); Chloride 110 mmol/L (98-107); Estimated Creatinine Clearance 94 ml/min; Glucose 91 mg/dl (70-99); Potassium 4.3 mmol/L (3.5-5.1); Sodium 142 mmol/L (135-145); Total Bilirubin < 0.1 mg/dl (0.2-1.3); Total Protein 4.9 g/dl (6.3-8.2); eGFR > 60.00
[2024-06-28] MEDS: HEPARIN SC (08:49)
--- NOTE | 2024-06-28 09:40 | W.IMMPOSTOP ---
Surgical Immed Post Op Note
-
Primary Surgeon: Byron
Assisting Surgeon: None
Pre-op Diagnosis: right ureteral calculus, right renal colic
Post-op Diagnosis: same
Procedure Performed: right ureteroscopic laser lithotripsy, placement right JJ stent
Anesthesia Type: GET
Specimen / Cultures: None
Estimated Blood Loss: None
Complications: None
[2024-06-28] MEDS: DILAUDID 0.25 MG IV (10:13)
--- NOTE | 2024-06-28 10:35 | CM ---
Case management following for discharge planning
To OR today for cystoscopy
CM will follow for d/c needs
Plan - anticipate home no needs
--- NOTE | 2024-06-28 11:54 | W.PN.HOSP.TC ---
Addendum entered and electronically signed by Glynn Contreras MD 06/29/24 18:14:
[id number]
Addendum entered and electronically signed by Glynn Contreras MD 06/28/24 13:56:
switch to ciprofloxacin
Original Note:
Today's Communication/Plan
-
dc with empiric abx to compete 7 day course total
f/u urology for stent outpatient
Assessment / Plan
Assessment / Plan
Physical Exam
General: Other (34y F in no acute distress.)
HEENT: Moist mucous membranes and PERRLA
Respiratory: Clear; No Wheezes, Rales or Rhonchi
Cardiac: S1/S2 and Regular Rhythm; No Murmur
GI: Soft, Non Distended, Normal Bowel Sounds and Other (mild R sided abdominal tenderness without rebound or guarding.)
Genito-urinary: Costovertebral angle tend (Pos R CVAT)
Musculoskeletal: No Clubbing, No Cyanosis and No Edema
Neuro: AO x 3
A/P: Patient is a 34y F with PMH significant for prolactinoma who presents to ED complaining of R flank pain since this AM.
R Ureteral Stone
-s/p Right ureteroscopic laser lithotripsy, placement right JJ stent 06/28
- F/u Urology outpatient for stent removal
-can cont empiric abx for now as difficult to discern if actual infection v not with no recent cultures although 06/23 with no growth. Complete 7 day course total
#Transaminitis
-mild
-f/u cmp in 5-7 days
Prolactinoma
- Stable. Continue cabergoline.
Migraine Headaches
- Stable. Continue propranolol prophylaxis.
DVT Prophylaxis: HSQ
Code Status: Full
More than 30 minutes spent in discharge including
Final examination of the patient
Summarizing hospital stay
Instructions for continuing care to all relevant caregivers
Preparation of discharge records, prescriptions, and referral forms
Total time spent (35 in minutes):
Anticipated Discharge: Today
Subjective/Interval History
-
Date of Service: June 28, 2024
ureteroscopic laser lithotripsy, placement right JJ stent today
Objective Data
-
Labs:
Laboratory Results
06/28/24
04:47
WBC 6.0
Hgb 10.3 L
Hct 29.8 L
Plt Count 145
Sodium 142
Potassium 4.3
Chloride 110 H
Carbon Dioxide 23
BUN 6 L
Creatinine 0.8
Glucose 91
Calcium 8.5
Total Bilirubin < 0.1 L
AST 61 H
ALT 66 H
Alkaline Phosphatase 75
Vital Signs:
Vital Signs
Temp Pulse Resp BP Pulse Ox
97.9 F 59 16 119/68 99
06/28/24 11:00 06/28/24 11:00 06/28/24 11:00 06/28/24 11:00 06/28/24 11:00
I&O
06/27/24 06/28/24 06/29/24
06:59 06:59 06:59
Intake Total 1750 / 1750 2340 / 2340 400 / 400
Output Total 425 / 425 2800 / 2800
Balance 1325 / 1325 -460 / -460 400 / 400
Review of Systems
-
History Source: Patient
All other systems: Not reviewed unless documented
Data Reviewed
-
Diagnostic Radiology: Image personally visualized and interpreted and Report Reviewed by me
CT Scan: Image personally visualized and interpreted and Report Reviewed by me
Labs: Labs Reviewed by me
--- NOTE | 2024-06-28 11:57 | W.DS.TRANS ---
DC Summary - [employer]
-
Discharge Instructions:
Discharge Diagnosis/Procedures R Ureteral Stone s/p ureteroscopic laser
lithotripsy, placement right JJ stent
Activity As tolerated
Blood Work CMP in 5-7 days with PCP
Instructions:
Stand-Alone Forms:
Changes to Home Medications: Yes
Discharge Medications:
DC Medications w/original date entered in [employer]
acetaminophen 500 mg tablet (Tylenol Extra Strength) 500 mg PO Q6HPRN PRN mild pain 06/25/24
cabergoline 0.5 mg tablet 0.5 mg PO DICKSON 06/25/24
ibuprofen 200 mg tablet 600 mg PO Q6HPRN PRN mild pain 06/25/24
propranolol 60 mg capsule,24 hr,extended release 60 mg PO HS 06/25/24
cefdinir 300 mg capsule 300 mg PO Q12H 4 days #8 caps 06/28/24
Home Medication Changes
cefdinir 300 mg capsule 300 mg PO Q12H 4 days #8 caps 06/28/24
Pending Results: No
[2024-06-28] MEDS: NSS IV (14:09)
== END 2024-06-28 14:41 | disposition home or self-care (01) | DRG 661 ==
LOC: 2 SOUTH 22:07
PROVIDERS: Physician Assistant Medical; ADMITTING PHYSICIAN Hospitalist; ATTENDING PHYSICIAN Internal Medicine; CONSULT PHYSICIAN Specialist; EMERGENCY PHYSICIAN Emergency Medicine; FAMILY PHYSICIAN Family Medicine
PROC: 0T768DZ Dilation of Right Ureter with Intraluminal Device, Via Natural or Artificial Opening Endoscopic (ICD-10-PCS; 2024-06-28)
PROC: 0TF68ZZ Fragmentation in Right Ureter, Via Natural or Artificial Opening Endoscopic (ICD-10-PCS; 2024-06-28)
DX: N13.2 Hydronephrosis with renal and ureteral calculous obstruction (principal); R31.9 Hematuria, unspecified; D35.2 Benign neoplasm of pituitary gland; R74.01 Elevation of levels of liver transaminase levels; G43.909 Migraine, unspecified, not intractable, without status migrainosus; Z60.2 Problems related to living alone; Z82.49 Family history of ischemic heart disease and other diseases of the circulatory system
CPT/HCPCS: 74018; 76000; 80048; 80053; 81003; 81015; 84703; 85025; 85027; 93005; 96361; 96374; 96375; 96376; 99285; C1894; C2617

== ENCOUNTER → 2024-08-15 11:40 | Outpatient (REF) | payer OTHER, SELFPAY | LOC: RAD 11:40 | PROVIDERS: ATTENDING PHYSICIAN Specialist; FAMILY PHYSICIAN Family Medicine | DX: N20.0 Calculus of kidney (principal) | CPT/HCPCS: 74018 ==

== ENCOUNTER 2024-11-06 06:17 | Day surgery (SDC) | payer OTHER, SELFPAY ==
[2024-11-06] VITALS (7 sets, daily range): BP systolic 89–139; BP diastolic 60–65; BMI 27.4
[2024-11-06] MEDS: Pyridium 200 MG PO (10:44)
[2024-11-06] MEDS: NORMOSOL-R/PLASMALYTE-A 1000 IV (10:49)
== END 2024-11-06 13:20 | disposition home or self-care (01) ==
LOC: SDS 06:17
PROVIDERS: ATTENDING PHYSICIAN Specialist; FAMILY PHYSICIAN Family Medicine
PROC: 0TC08ZZ Extirpation of Matter from Right Kidney, Via Natural or Artificial Opening Endoscopic (ICD-10-PCS; 2024-11-06)
PROC: 0T768DZ Dilation of Right Ureter with Intraluminal Device, Via Natural or Artificial Opening Endoscopic (ICD-10-PCS; 2024-11-06)
DX: N20.0 Calculus of kidney (principal)
CPT/HCPCS: 52356; 74420; 76000; 82365; C1894; C2617

== ENCOUNTER → 2024-12-31 14:36 | Outpatient (REF) | payer OTHER, SELFPAY | LOC: RAD 14:36 | PROVIDERS: ATTENDING PHYSICIAN Family Medicine | DX: M54.50 Low back pain, unspecified (principal); M54.6 Pain in thoracic spine | CPT/HCPCS: 72052; 72072; 72110 ==

== ENCOUNTER → 2025-01-19 07:04 | Outpatient (REF) | payer OTHER, SELFPAY | LOC: MRI 3T 07:04 | PROVIDERS: ATTENDING PHYSICIAN Physician Assistant; FAMILY PHYSICIAN Family Medicine | DX: M54.16 Radiculopathy, lumbar region (principal) | CPT/HCPCS: 72148 ==

== ENCOUNTER 2025-02-14 16:06 | Outpatient (RCR) | payer OTHER, SELFPAY | END 2025-02-14 23:59 | disposition home or self-care (01) | LOC: RPT 16:06 | PROVIDERS: ATTENDING PHYSICIAN Family Medicine | DX: M54.59 Other low back pain (principal); M54.6 Pain in thoracic spine; Z73.6 Limitation of activities due to disability; M79.605 Pain in left leg; M62.81 Muscle weakness (generalized) | CPT/HCPCS: 97010; 97110; 97112; 97140; 97161; 97530 ==

== ENCOUNTER → 2025-03-12 12:15 | Outpatient (REF) | payer OTHER, SELFPAY | LOC: MRI 3T 12:15 | PROVIDERS: ATTENDING PHYSICIAN Nurse Practitioner Family; FAMILY PHYSICIAN Family Medicine | DX: D35.2 Benign neoplasm of pituitary gland (principal) | CPT/HCPCS: 70553; A9575 ==